=== PATIENT | female | born 1985 | race Caucasian/White ===

== ENCOUNTER 2018-02-23 15:20 | Emergency (ER) | payer OTHER ==
[~2018-02-23] VITALS: Ht 175.3 cm; Wt 84.8 kg
[2018-02-23] MEDS ORDERED: TYLENOL COLD H1 EAC1 (15:39)
[2018-02-23] MEDS ORDERED: ZYRTEC D (15:39)
== END 2018-02-23 17:39 | disposition home or self-care (01) ==
LOC: ER 15:20
DX: J11.1 Influenza due to unidentified influenza virus with other respiratory manifestations (principal)

== ENCOUNTER 2019-02-05 20:22 | Emergency (ER) | payer OTHER ==
[~2019-02-05] VITALS: Ht 175.3 cm; Wt 80.7 kg
[~2019-02-05 20:22] MED LIST: TYLENOL COLD H1 EAC1; ZYRTEC D
== END 2019-02-05 23:20 | disposition home or self-care (01) ==
LOC: ER 20:22
DX: K29.70 Gastritis, unspecified, without bleeding (principal)